=== PATIENT | female | born 2000 | race Caucasian/White ===

== ENCOUNTER 2021-11-01 13:52 | Emergency (ER) | payer OTHER ==
[2021-11-01] MEDS ORDERED: Benzocaine 20% Topical Spray UD MUCMEM ONE (14:30)
[2021-11-01] MEDS ORDERED: Lidocaine 2% Viscous Solution 15 ML Cup PO ONE (14:30)
--- NOTE | 2021-11-01 14:31 | EDM.PDOC ---
ED HPI GENERAL MEDICAL PROBLEM - General Chief Complaint: ENT Problem Stated Complaint: ABCESS TOOTH Time Seen by Provider: 11/01/21 14:10 Source of Information: Reports: Patient History Limitations: Reports: No Limitations - History of Present Illness INITIAL COMMENTS - FREE TEXT/NARRATIVE: HISTORY AND PHYSICAL: History of present illness: Patient is a 21-year-old female who presents emergency room today with concern of dental pain that has been ongoing for the past 1 week and is worsened over the past several days. Patient states that she is aware that she needs to get i nto the dentist in order to have her tooth extracted as she states that it broke quite a while ago. Patient states that she has not made the time in order to get this done but does understand the importance of seeing a dentist. Patient states that she has had pain of this tooth before and was given antibiotics which has helped the tooth in the past. Patient states that she is able to eat and drink and just avoids chewing on the affected tooth. Denies any other symptoms or concerns. Patient denies fever, chills, chest pain, shortness of breath, or cough. Denies headache, neck stiff ness, change in vision, syncope, or near syncope. Denies nausea, vomiting, abdominal pain, diarrhea, constipation, or dysuria. Has not noted any blood in urine or stool. Patient has been eating and drinking appropriately. Review of systems: As per history of present illness and below otherwise all systems reviewed and negative. Past medical history: As per history of present illness and as reviewed below otherwise noncontributory. Surgical history: As per history of present illness and as reviewed below otherwise noncontributory. Social history: See social history for further information Family history: As per history of present illness and as reviewed below otherwise noncontributory. Physical exam: General: Patient is alert, oriented, and in no acute distress. Patient sitting comfortably on exam table. Vitals stable and reviewed by me. HEENT: Patient is missing tooth #19 through 17. Tooth #21 is half chipped/eroded with surrounding edema of the gumline without obvious drainable abscess at this time. Otherwise, atraumatic, normocephalic, pupils equal and reactive bilaterally, negative for conjunctival pallor or scleral icterus, mucous membranes moist, throat clear, neck supple, nontender, trachea midline. No drooling or trismus noted. No meningeal signs. No hot potato voice noted. Lungs: Clear to auscultation, breath sounds equal bilaterally, chest nontender. Heart: S1S2, regular rate and rhythm without overt murmur Abdomen: Soft, nondistended, nontender. Negative for masses or hepatosplenomegaly. Negative for costovertebral tenderness. Pelvis: Stable nontender. Genitourinary: Deferred. Rectal: Deferred. Skin: Intact, warm, dry. No lesions or rashes noted. Extremities: Atraumatic, negative for cords or calf pain. Neurovascular unremarkable. Neuro: Awake, alert, oriented. Cranial nerves II through XII unremarkable. Cerebellum unremarkable. Motor and sensory unremarkable throughout. Exam nonfocal. Medical Decision Making: Signs and symptoms that were prompt return to the ED thoroughly discussed with patient. Discussed importance for follow-up with dentist. Voices understanding and is agreeable to plan of care. Denies any further questions or concerns at this time. Diagnostics: None Therapeutics: Dental balls Prescription: Augmentin, diclofenac, tramadol (#10 tabs) Impression: Dental infection Plan: 1. Please take medication as prescribed. Your medications have been sent to [facility]. 2. Tylenol as directed and as needed for pain management. Take diclofenac and tramadol as prescribed. When taking diclofenac, do not take any additional NSAID medication such as ibuprofen, naproxen, aspirin, etc. Caution when taking tramadol as this medication does cause drowsiness and sedation. Do not take this medication and drive a vehicle or operate any heavy machinery. Caution when taking this medication outside of the home. 3. "Tooth Balls" have been given to you; apply along the gumline every 2-3 hours as needed. Do not swallow these; external use only. 4. Follow-up with a dentist for definitive care. Return to the ED as needed and as discussed. Definitive disposition and diagnosis as appropriate pending reevaluation and review of above. left lower dental Pain Score (Numeric/FACES): 8 - Related Data Allergies Allergy/AdvReac Type Severity Reaction Status Date / Time No Known Allergies Allergy Verified 11/01/21 14:12 Home Meds: Home Meds Amoxicillin/Potassium Clav [Augmentin 875-125 Tablet] 1 each PO BID 7 Days #14 tablet 11/01/21 [Rx] Diclofenac Sodium [Voltaren] 75 mg PO BIDMEALS PRN #15 tab.cr 11/01/21 [Rx] Escitalopram [Lexapro] 20 mg PO DAILY 11/01/21 [History] Progesterone, Micronized [Progesterone] 10 mg PO DAILY 11/01/21 [History] metFORMIN [Glucophage XR] 500 mg PO BID 11/01/21 [History] traMADol [Ultram] 50 mg PO Q6H PRN #10 tab 11/01/21 [Rx] Past Medical History HEENT History: Reports: None Cardiovascular History: Reports: None Respiratory History: Reports: None Gastrointestinal History: Reports: None Genitourinary History: Reports: None 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 (See Below) Other EMERGENCY VETERINARIAN History: irregular menstrual cycle Musculoskeletal History: Reports: None Neurological History: Reports: None Psychiatric History: Reports: Anxiety, Depression Endocrine/Metabolic History: Reports: Other (See Below) Other Endocrine/Metabolic History: Pre-Diabetic Hematologic History: Reports: None Immunologic History: Reports: None Oncologic (Cancer) History: Reports: None Dermatologic History: Reports: None - Infectious Disease History Infectious Disease History: Reports: None - Past Surgical History Head Surgeries/Procedures: Reports: None HEENT Surgical History: Reports: Tonsillectomy Cardiovascular Surgical History: Reports: None Respiratory Surgical History: Reports: None GI Surgical History: Reports: None Female Surgical History: Reports: None Endocrine Surgical History: Reports: None Neurological Surgical History: Reports: None Musculoskeletal Surgical History: Reports: None Oncologic Surgical History: Reports: None Dermatological Surgical History: Reports: None Social & Family History - Family History Family Medical History: No Pertinent Family History - Caffeine Use Caffeine Use: Reports: None - Recreational Drug Use Recreational Drug Use: No ED ROS GENERAL - Review of Systems Review Of Systems: Comprehensive ROS is negative, except as noted in HPI. ED EXAM, GENERAL - Physical Exam Exam: See Below (See dictation) Course - Vital Signs Last Recorded V/S: Last Vital Signs Temp 98.5 F 11/01/21 14:10 Pulse 78 11/01/21 14:10 Resp 18 11/01/21 14:10 BP 152/86 H 11/01/21 14:10 Pulse Ox 97 11/01/21 14:10 - Orders/Labs/Meds Meds: Medications Discontinued Medications Generic Name Dose Route Start Last Admin Trade Name Freq PRN Reason Stop Dose Admin Benzocaine 2 each 11/01/21 14:30 Benzocaine 20% Topical Bryant Ud MUCMEM 11/01/21 14:31 ONETIME ONE Lidocaine HCl 15 ml 11/01/21 14:30 Lidocaine 2% Viscous Solution 15 Ml Cup PO 11/01/21 14:31 ONETIME ONE Departure - Departure Time of Disposition: 14:30 Disposition: Home, Self-Care 01 Clinical Impression: Dental infection - Discharge Information Prescriptions: Amoxicillin/Potassium Clav [Augmentin 875-125 Tablet] 1 each PO BID 7 Days #14 tablet traMADol [Ultram] 50 mg PO Q6H PRN #10 tab PRN Reason: Pain (Severe 7-10) Diclofenac Sodium [Voltaren] 75 mg PO BIDMEALS PRN #15 tab.cr PRN Reason: Pain Referrals: PCP,None [Primary Care Provider] - Forms: ED Department Discharge Additional Instructions: The following information is given to patients seen in the emergency department who are being discharged to home. This information is to outline your options for follow-up care. We provide all patients seen in our emergency department with a follow-up referral. The need for follow-up, as well as the timing and circumstances, are variable depending upon the specifics of your emergency department visit. If you don't have a primary care physician on staff, we will provide you with a referral. We always advise you to contact your personal physician following an emergency department visit to inform them of the circumstance of the visit and for follow-up with them and/or the need for any referrals to a consulting specialist. The emergency department will also refer you to a specialist when appropriate. This referral assures that you have the opportunity for follow-up care with a specialist. All of these measure are taken in an effort to provide you with optimal care, which includes your follow-up. Under all circumstances we always encourage you to contact your private physician who remains a resource for coordinating your care. When calling for follow-up care, please make the office aware that this follow-up is from your recent emergency room visit. If for any reason you are refused follow-up, please contact the [facility] Emergency Department at and asked to speak to the emergency department charge nurse. [facility] [address] [place] [address] [id number] [facility] [address] [place] [id number] 1. Please take medication as prescribed. Your medications have been sent to [facility]. 2. Tylenol as directed and as needed for pain management. Take diclofenac and tramadol as prescribed. When taking diclofenac, do not take any additional NSAID medication such as ibuprofen, naproxen, aspirin, etc. Caution when taking tramadol as this medication does cause drowsiness and sedation. Do not take this medication and drive a vehicle or operate any heavy machinery. Caution when taking this medication outside of the home. 3. "Tooth Balls" have been given to you; apply along the gumline every 2-3 hours as needed. Do not swallow these; external use only. 4. Follow-up with a dentist for definitive care. Return to the ED as needed and as discussed. Sepsis Event Note (ED) - Evaluation Sepsis Screening Result: No Definite Risk - Focused Exam Vital Signs: Vital Signs Temp Pulse Resp BP Pulse Ox 11/01/21 14:10 98.5 F 78 18 152/86 H 97
== END 2021-11-01 14:59 | disposition home or self-care (01) ==
LOC: MW.ED 13:52
DX: K04.7 Periapical abscess without sinus (principal)
CPT/HCPCS: 99282; A9270

== ENCOUNTER 2021-11-21 19:43 | Emergency (ER) | payer OTHER ==
--- NOTE | 2021-11-21 20:34 | EDM.PDOC ---
ED HPI GENERAL MEDICAL PROBLEM - General Chief Complaint: General Stated Complaint: TOOTHACHE Time Seen by Provider: 11/21/21 19:47 Source of Information: Reports: Patient History Limitations: Reports: No Limitations - History of Present Illness INITIAL COMMENTS - FREE TEXT/NARRATIVE: HISTORY AND PHYSICAL: History of present illness: Patient is a 21-year-old female who presents emergency room today with concern of dental infection. Patient states that she was seen recently emergency room and was given antibiotics. Patient states that she did have improvement of her dental pain for a short period of time but had pain come back. Patient states that she has not made an appointment with a dentist. Patient realizes that she needs to make an appointment with a dentist in order to get the tooth addressed. Patient states that she started having swelling next to the tooth today so came to the emergency room as she realized she needed more antibiotics. Patient denies fever, chills, chest pain, shortness of breath, or cough. Denies headache, neck stiff ness, change in vision, syncope, or near syncope. Denies nausea, vomiting, abdominal pain, diarrhea, constipation, or dysuria. Has not noted any blood in urine or stool. Patient has been eating and drinking appropriately. Review of systems: As per history of present illness and below otherwise all systems reviewed and negative. Past medical history: As per history of present illness and as reviewed below otherwise noncontributory. Surgical history: As per history of present illness and as reviewed below otherwise noncontributory. Social history: See social history for further information Family history: As per history of present illness and as reviewed below otherwise noncontributory. Physical exam: General: Patient is alert, oriented, and in no acute distress. Patient sitting comfortably on exam table. Vitals stable and reviewed by me HEENT: Patient is missing tooth #19 through 17. Tooth #21 is half fractured and exposed nerve root with mild edema of the adjacent mandible and pain to palpation without obvious drainable abscess. Otherwise, atraumatic, normocephalic, pupils equal and reactive bilaterally, negative for conjunctival pallor or scleral icterus, mucous membranes moist, throat clear, neck supple, nontender, trachea midline. No drooling or trismus noted. No meningeal signs. No hot potato voice noted. Lungs: Clear to auscultation, breath sounds equal bilaterally, chest nontender. Heart: S1S2, regular rate and rhythm without overt murmur Abdomen: Soft, nondistended, nontender. Negative for masses or hepatosplenomegaly. Negative for costovertebral tenderness. Pelvis: Stable nontender. Genitourinary: Deferred. Rectal: Deferred. Skin: Intact, warm, dry. No lesions or rashes noted. Extremities: Atraumatic, negative for cords or calf pain. Neurovascular unremarkable. Neuro: Awake, alert, oriented. Cranial nerves II through XII unremarkable. Cerebellum unremarkable. Motor and sensory unremarkable throughout. Exam nonfocal. Medical Decision Making: Personally seen and evaluated patient on 11/01/2021 and at that time patient had a dental infection and was placed on Augmentin and instructed to follow-up with a dentist. According to patient, she has not done this. She did have some improvement of her tooth pain, has had returning tooth discomfort over the past several days. Patient has recently been on amoxicillin/Augmentin with worsening swelling adjacent to her tooth. Will switch to clindamycin. I also discussed with patient getting temporary cement [id number] until she is able to follow-up with a dentist. Discussed importance with patient that she needs a follow-up with a dentist to get the tooth addressed as it is fractured with an explore s ooner for root. Will give patient a small amount of [place] to get through the weekend. Signs and symptoms that were prompt return to the ED thoroughly discussed with patient. Discussed importance for follow-up with a dentist. Voices understanding and is agreeable to plan of care. Denies any further questions or concerns at this time. Diagnostics: None Therapeutics: None Prescription: [place] (#10 tabs), clindamycin Impression: Dental infection Tooth fracture Plan: 1. Please take medication as prescribed. 2. Tylenol and/or ibuprofen as directed and as needed for pain management. Caution when taking [place] as this medication does cause drowsiness and sedation. Do not take this medication and operate any heavy equipment or drive a vehicle. Caution when using this medication outside at home. [place] also contains a Tylenol component so take this into consideration with any additional Tylenol dosing as discussed. 3. "Tooth Balls" have been given to you; apply along the gumline every 2-3 hours as needed. Do not swallow these; external use only. 4. Follow-up with a dentist for definitive care. Return to the ED as needed and as discussed. Definitive disposition and diagnosis as appropriate pending reevaluation and review of above. Left Face/Facial Pain Score (Numeric/FACES): 10 - Related Data Allergies Allergy/AdvReac Type Severity Reaction Status Date / Time No Known Allergies Allergy Verified 11/01/21 14:12 Home Meds: Home Meds Amoxicillin/Potassium Clav [Augmentin 875-125 Tablet] 1 each PO BID 7 Days #14 tablet 11/01/21 [Rx] Diclofenac Sodium [Voltaren] 75 mg PO BIDMEALS PRN #15 tab.cr 11/01/21 [Rx] Escitalopram [Lexapro] 20 mg PO DAILY 11/01/21 [History] Progesterone, Micronized [Progesterone] 10 mg PO DAILY 11/01/21 [History] metFORMIN [Glucophage XR] 500 mg PO BID 11/01/21 [History] traMADol [Ultram] 50 mg PO Q6H PRN #10 tab 11/01/21 [Rx] Past Medical History HEENT History: Reports: None Cardiovascular History: Reports: None Respiratory History: Reports: None Gastrointestinal History: Reports: None Genitourinary History: Reports: None 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 History: Reports: 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 (See Below) Other 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 History: irregular menstrual cycle Musculoskeletal History: Reports: None Neurological History: Reports: None Psychiatric History: Reports: Anxiety, Depression Endocrine/Metabolic History: Reports: Other (See Below) Other Endocrine/Metabolic History: Pre-Diabetic Hematologic History: Reports: None Immunologic History: Reports: None Oncologic (Cancer) History: Reports: None Dermatologic History: Reports: None - Infectious Disease History Infectious Disease History: Reports: None - Past Surgical History Head Surgeries/Procedures: Reports: None HEENT Surgical History: Reports: Tonsillectomy Cardiovascular Surgical History: Reports: None Respiratory Surgical History: Reports: None GI Surgical History: Reports: None Female Surgical History: Reports: None Endocrine Surgical History: Reports: None Neurological Surgical History: Reports: None Musculoskeletal Surgical History: Reports: None Oncologic Surgical History: Reports: None Dermatological Surgical History: Reports: None Social & Family History - Family History Family Medical History: No Pertinent Family History - Tobacco Use Tobacco Use Status *Q: Never Tobacco User - Caffeine Use Caffeine Use: Reports: None - Recreational Drug Use Recreational Drug Use: No ED ROS GENERAL - Review of Systems Review Of Systems: Comprehensive ROS is negative, except as noted in HPI. ED EXAM, GENERAL - Physical Exam Exam: See Below (See dictation) Course - Vital Signs Last Recorded V/S: Last Vital Signs Temp 98 F 11/21/21 20:08 Pulse 88 11/21/21 20:08 Resp 20 11/21/21 20:08 BP Pulse Ox 98 11/21/21 20:08 Departure - Departure Time of Disposition: 20:33 Disposition: Home, Self-Care 01 Clinical Impression: Tooth fracture, Dental infection - Discharge Information Forms: ED Department Discharge Additional Instructions: The following information is given to patients seen in the emergency department who are being discharged to home. This information is to outline your options for follow-up care. We provide all patients seen in our emergency department with a follow-up referral. The need for follow-up, as well as the timing and circumstances, are variable depending upon the specifics of your emergency department visit. If you don't have a primary care physician on staff, we will provide you with a referral. We always advise you to contact your personal physician following an emergency department visit to inform them of the circumstance of the visit and for follow-up with them and/or the need for any referrals to a consulting specialist. The emergency department will also refer you to a specialist when appropriate. This referral assures that you have the opportunity for follow-up care with a specialist. All of these measure are taken in an effort to provide you with optimal care, which includes your follow-up. Under all circumstances we always encourage you to contact your private physician who remains a resource for coordinating your care. When calling for follow-up care, please make the office aware that this follow-up is from your recent emergency room visit. If for any reason you are refused follow-up, please contact the [facility] Emergency Department at and asked to speak to the emergency department charge nurse. [facility] [address] [place] [id number] [facility] [address] [place] [id number] 1. Please take medication as prescribed. 2. Tylenol and/or ibuprofen as directed and as needed for pain management. Caution when taking [place] as this medication does cause drowsiness and sedation. Do not take this medication and operate any heavy equipment or drive a vehicle. Caution when using this medication outside at home. [place] also contains a Tylenol component so take this into consideration with any additional Tylenol dosing as discussed. 3. "Tooth Balls" have been given to you; apply along the gumline every 2-3 hours as needed. Do not swallow these; external use only. 4. Follow-up with a dentist for definitive care. Return to the ED as needed and as discussed. Sepsis Event Note (ED) - Focused Exam Vital Signs: Vital Signs Temp Pulse Resp Pulse Ox 11/21/21 20:08 98 F 88 20 98
== END 2021-11-21 20:45 | disposition home or self-care (01) ==
LOC: MW.ED 19:43
DX: S02.5XXA Fracture of tooth (traumatic), initial encounter for closed fracture (principal); K04.7 Periapical abscess without sinus
CPT/HCPCS: 99282

== ENCOUNTER 2021-11-23 13:20 | Emergency (ER) | payer OTHER ==
[2021-11-23] MEDS ORDERED: Sodium Chloride 0.9% 10 ML Syringe FLUSH PRN (16:23)
[2021-11-23] MEDS ORDERED: Sodium Chloride 0.9% 2.5 ML Syringe FLUSH PRN (16:23)
[2021-11-23] MEDS ORDERED: Sodium Chloride 0.9% 1,000 ML IV ONE (16:50)
[2021-11-23] MEDS ORDERED: HYDROmorphone 1 MG/ML Syringe IVPUSH ONE ×2 (16:50→18:48)
[2021-11-23] MEDS ORDERED: Ampicillin/Sulbactam Na 3 GM in Sodium Chloride 0.9% 100 ML IV ONE (16:51)
[2021-11-23 17:38] LABS: BLOOD UREA NITROGEN,BUN 13 mg/dL (7.0-18.0); CARBON DIOXIDE,CO2 25.6 mmol/L (21.0-32.0); CHLORIDE,CL 104 mmol/L (98-107); GLUCOSE RANDOM 87 mg/dL (74-106); POTASSIUM,K 4.6 mmol/L (3.5-5.1); SODIUM,NA 142 mmol/L (136-145)
[2021-11-23 17:54] LABS: CORONAVIRUS COVID-19 NAA POSITIVE (NEGATIVE); INFLUENZA A NAA NEGATIVE (NEGATIVE); INFLUENZA B NAA NEGATIVE (NEGATIVE)
[2021-11-23] MEDS ORDERED: Iopamidol 755 MG/ML 500 ML Multipack Bottle IVPUSH ONE (19:04)
--- NOTE | 2021-11-23 19:44 | CT ---
Clinical INDICATION: Dental infection. Worsening edema. TECHNIQUE: Axial intravenously infused CT cuts performed through the facial bones. 100 mL of Isovue-370 has been injected intravenously. FINDINGS: There is no convincing dental abscess. There is moderate right and mild left maxillary sinus mucosal thickening. There is moderate bilateral ethmoid sinus mucosal thickening with mild mucosal thickening in both frontal sinuses. The nasopharynx is clear. There is a large dental sharon of the left maxillary premolar tooth. The visualized brain and orbits appear normal. There is extensive submental, mandibular, carotid chain and posterior cervical space lymph adenopathy presumably reactive in nature. The major salivary glands and the thyroid gland all appear normal. IMPRESSION: 1. No dental abscess identified. 2. Paranasal sinus mucosal thickening most prominent in the right maxillary sinus. 3. Carious left maxillary premolar tooth. 4. Cervical lymphadenopathy presumed reactive in nature. Please note that all CT scans at this facility use dose modulation, iterative reconstruction, and/or weight-based dosing when appropriate to reduce radiation dose to as low as reasonably achievable. Dictated by Emeterio Hgih MD @ 11/23/2021 7:43:43 PM (Electronically Signed)
--- NOTE | 2021-11-23 19:50 | CT ---
Clinical INDICATION: Recent dental infection. Worsening edema. TECHNIQUE: Axial intravenously infused CT cuts were performed from above the skullbase to the superior mediastinum. One hundred mL of Isovue-370 has been injected intravenously. FINDINGS: No dental abscess is identified. There is a carious left mandibular premolar tooth. There is mucosal thickening within the paranasal sinuses most prominent within the right maxillary sinus. The brain and orbits appear normal. No mucosal abnormality is identified within the on nasal cavity or pharynx. The major salivary glands and the thyroid gland appear normal. There are patchy ground-glass opacities and consolidations at the lung apices likely representing COVID-19. Impression: 1. No dental abscess identified. 2. Carious left mandibular premolar tooth. 3. Paranasal sinus mucosal thickening most prominent within the right maxillary sinus. 4. Patchy ground-glass opacities and consolidations at the lung apices likely representing COVID-19. Please note that all CT scans at this facility use dose modulation, iterative reconstruction, and/or weight-based dosing when appropriate to reduce radiation dose to as low as reasonably achievable. Dictated by Emeterio High MD @ 11/23/2021 7:49:56 PM (Electronically Signed)
--- NOTE | 2021-11-23 20:08 | EDM.PDOC ---
ED HPI GENERAL MEDICAL PROBLEM - General Chief Complaint: ENT Problem Stated Complaint: SOB SWELLING FROM BAD TOOTH Time Seen by Provider: 11/23/21 16:17 Source of Information: Reports: Patient History Limitations: Reports: No Limitations - History of Present Illness INITIAL COMMENTS - FREE TEXT/NARRATIVE: HISTORY AND PHYSICAL: History of present illness: Patient is a 21-year-old female, who I am personally familiar with as I have seen her multiple times in the past 1 month, who presents emergency room today with concern of worsening dental infection. Patient states that she has been taking her antibiotics but despite this has had worsening pain of the left side and now feels like the pain is going underneath her tongue. Patient states that she has been taking the clindamycin that I gave her 2 days ago and only has 3 tabs of her pain medication left. Patient states that she did not go to the store and get the temporary cement that I recommended to her but has been taking the antibiotics. Patient states that she feels like the swelling is worse under her tongue and the side of her neck. Patient denies fever, chills, chest pain, shortness of breath, or cough. Denies headache, neck stiff ness, change in vision, syncope, or near syncope. Denies nausea, vomiting, abdominal pain, diarrhea, constipation, or dysuria. Has not noted any blood in urine or stool. Patient has been eating and drinking appropriately. Review of systems: As per history of present illness and below otherwise all systems reviewed and negative. Past medical history: As per history of present illness and as reviewed below otherwise noncontributory. Surgical history: As per history of present illness and as reviewed below otherwise noncontributory. Social history: See social history for further information Family history: As per history of present illness and as reviewed below otherwise noncontributory. Physical exam: General: Patient is alert, oriented, and in no acute distress. Patient sitting on exam table is tearful and crying in pain holding her left side mouth and throat. HEENT: No obvious drainable dental abscess. No appreciable edema of the neck or mouth; however, patient does have severe pain to palpation under the tongue with no obvious cellulitis / edema. The pain under her tongue is new from prior exam. Tooth #26 remains fractured with exposed nerve root. Otherwise, atraumatic, normocephalic, pupils equal and reactive bilaterally, negative for conjunctival pallor or scleral icterus, mucous membranes moist, throat clear, neck supple, nontender, trachea midline. No drooling or trismus noted. No meningeal signs. No hot potato voice noted. Lungs: Clear to auscultation, breath sounds equal bilaterally, chest nontender. Heart: S1S2, regular rate and rhythm without overt murmur Abdomen: Soft, nondistended, nontender. Negative for masses or hepatosplenomegaly. Negative for costovertebral tenderness. Pelvis: Stable nontender. Genitourinary: Deferred. Rectal: Deferred. Skin: Intact, warm, dry. No lesions or rashes noted. Extremities: Atraumatic, negative for cords or calf pain. Neurovascular unremarkable. Neuro: Awake, alert, oriented. Cranial nerves II through XII unremarkable. Cerebellum unremarkable. Motor and sensory unremarkable throughout. Exam nonfocal. Medical Decision Making: Patient is a 21 year old female who presents to the ED today with worsening dental pain / swelling to side of her throat and new pain under her tongue. Upon arrival to the ED, patient is vitally stable and sitting on exam table. She is tearful and crying throughout exam holding the left side of her mouth and throat. I have personally seen and evaluated patient multiple times in the past 1 month. Patient does have an obvious tooth fracture on the bottom left, approximately tooth #26 without obvious dental abscess. Patient continues to have this fracture, with no obvious sign of edema of her throat or adjacent to the tooth today. However, she does have new pain to palpation under the tongue that she did not have prior. Given this, will obtain lab work with imaging of maxillofacial all the way down throat for possible deep-seated abscess versus Prinzmetal angina. Will give patient dose of IV antibiotics empirically at this time while awaiting diagnostic completion. I had originally seen patient on 11/01/21 for dental pain and at that time I placed her on Augmentin and gave her pain medications and instructed her to follow-up with a dentist. She has not yet followed up with the dentist as she states that she got "sick "so did not make an appointment. She began experiencing symptoms again and I had seen her on the , 2 days ago. At that time, I had switched antibiotics to clindamycin and give her more pain medication. Pain that patient has now returned, obtaining further lab work and imaging at this time recommended for concern of worsening infection now with new clinical pain under the tongue. CBC is unremarkable and specifically white blood cell count is normal. CMP does show mild transaminitis with AST of 50 and ALT of 90. Lactic acid is within normal limits. Blood cultures pending. hCG negative. Patient is positive for Covid and negative for influenza and strep. Maxillofacial and sinus with contrast CT shows no dental abscess. Paranasal sinus mucosal thickening most prominent in the right maxillary sinus. Carious left maxillary premolar tooth. Cervical lymphadenopathy presumed reactive in nature. Soft tissue neck CT with contrast shows no dental abscess identified. Carious left mandibular premolar tooth. Paranasal sinus mucosal thickening most prominent within the right maxillary sinus. Patchy groundglass opacities and consolidations at the lung apices likely resolving COVID-19. Upon reevaluation of patient, she does have improvement of her symptoms with therapeutics given today in the emergency room. I discussed the importance of calling the dentist tomorrow morning in order to get her decayed tooth addressed. I also discussed going to the local grocery store to get the temporary cement to cover the tooth temporarily as this will help with her pain. Strict return precautions thoroughly discussed with patient. Discussed importance for follow-up with a primary care provider and her dentist. Voices understanding and is agreeable to plan of care. Denies any further q uestions or concerns at this time. Diagnostics: CBC, CMP, Serum hcg, Strep, COVID/Flu, Soft tissue neck ct w cont, maxilofacial CT w cont Therapeutics: NS, Dilaudid, Ampicillin/Sulbactam Prescription: None Impression: Tooth fracture COVID-19 viral infection Plan: 1. Your COVID-19 screening is positive. That means you do have the coronavirus and are considered contagious. Your vital signs and oxygen saturation are well enough that you were able to monitor your symptoms at home. Continue to monitor for trouble breathing, new confusion or inability to arouse, bluish lips or face or any of the other symptoms we discussed -if this occurs please return to the emergency room.Continue to monitor your health at home for worsening symptoms so that you can be taken care of and treated quickly if needed. 2. Please self quarantine until 10 days have passed since your symptoms began AND you are fever free (<100.4 degrees fahrenheit) for 24 hours without the use of fever-reducing medications AND symptoms are improving. You should restrict activities outside of your home, except for getting medical care. Do not go to work, school, or public areas. Avoid using public transportation, ride-sharing, or taxis. Inform any persons that you have been in contact with since you started becoming symptomatic that you have tested positive; they should be made aware and take the appropriate steps as needed. 3. You may alternate Tylenol and ibuprofen as needed for pain and fever management. 4. The [facility] department will be calling you and following up with you. The [place] COVID 19 Hotline phone number , They are open Wednesday - Wednesday 7am - 7pm. Follow up with your primary care provider for re-evaluation and re-testing after quarantine and discuss when you should be seen. 6. For more specific guidelines regarding isolation/quarantine please visit this website. https://www.health.[place].gov/sites/www/files/documents/Files/CHRISTOPH/coronavirus/Factsh eet_for_People_With_COVID-19.pdf Definitive disposition and diagnosis as appropriate pending reevaluation and review of above. Throat Pain Score (Numeric/FACES): 9 - Related Data Allergies Allergy/AdvReac Type Severity Reaction Status Date / Time almond Allergy Itching Verified 11/23/21 14:51 morphine Allergy Pain Verified 11/23/21 14:51 Home Meds: Home Meds Amoxicillin/Potassium Clav [Augmentin 875-125 Tablet] 1 each PO BID 7 Days #14 tablet 11/01/21 [Rx] Diclofenac Sodium [Voltaren] 75 mg PO BIDMEALS PRN #15 tab.cr 11/01/21 [Rx] Escitalopram [Lexapro] 20 mg PO DAILY 11/01/21 [History] Progesterone, Micronized [Progesterone] 10 mg PO DAILY 11/01/21 [History] metFORMIN [Glucophage XR] 500 mg PO BID 11/01/21 [History] traMADol [Ultram] 50 mg PO Q6H PRN #10 tab 11/01/21 [Rx] Acetaminophen/oxyCODONE [Percocet 325-5 MG] 1 each PO Q4H PRN #18 tab 11/23/21 [Rx] Past Medical History HEENT History: Reports: None Cardiovascular History: Reports: None Respiratory History: Reports: None Gastrointestinal History: Reports: None Genitourinary History: Reports: None 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: irregular menstrual cycle Musculoskeletal History: Reports: None Neurological History: Reports: None Psychiatric History: Reports: Anxiety, Depression Endocrine/Metabolic History: Reports: Other (See Below) Other Endocrine/Metabolic History: Pre-Diabetic Hematologic History: Reports: None Immunologic History: Reports: None Oncologic (Cancer) History: Reports: None Dermatologic History: Reports: None - Infectious Disease History Infectious Disease History: Reports: None - Past Surgical History Head Surgeries/Procedures: Reports: None HEENT Surgical History: Reports: Tonsillectomy Cardiovascular Surgical History: Reports: None Respiratory Surgical History: Reports: None GI Surgical History: Reports: None Female Surgical History: Reports: None Endocrine Surgical History: Reports: None Neurological Surgical History: Reports: None Musculoskeletal Surgical History: Reports: None Oncologic Surgical History: Reports: None Dermatological Surgical History: Reports: None Social & Family History - Family History Family Medical History: No Pertinent Family History - Caffeine Use Caffeine Use: Reports: None ED ROS GENERAL - Review of Systems Review Of Systems: Comprehensive ROS is negative, except as noted in HPI. ED EXAM, GENERAL - Physical Exam Exam: See Below (see dictation) Course - Vital Signs Last Recorded V/S: Last Vital Signs Temp 96.5 F L 11/23/21 14:52 Pulse 95 11/23/21 14:52 Resp 16 11/23/21 14:52 BP 138/98 H 11/23/21 14:52 Pulse Ox 95 11/23/21 14:52 - Orders/Labs/Meds Orders: Active Orders 24 hr Category Date Time Status CULTURE BLOOD [BC] Stat Lab 11/23/21 16:57 Received CULTURE BLOOD [BC] Stat Lab 11/23/21 17:03 Received Blood Culture x2 Reflex Set [OM.PC] Stat Oth 11/23/21 16:50 Ordered Saline Lock Insert [OM.PC] Stat Oth 11/23/21 16:23 Ordered Labs: Laboratory Tests 11/23/21 11/23/21 11/23/21 Range/Units 16:57 16:57 16:57 WBC 4.23 (4.0-11.0) K/uL RBC 4.77 (4.30-5.90) M/uL Hgb 13.8 (12.0-16.0) g/dL Hct 41.3 (36.0-46.0) % MCV 86.6 (80.0-98.0) fL MCH 28.9 (27.0-32.0) pg MCHC 33.4 (31.0-37.0) g/dL RDW Std Deviation 42.7 (28.0-62.0) fl RDW Coeff of Meera 13 (11.0-15.0) % Plt Count 200 (150-400) K/uL MPV 11.00 (7.40-12.00) fL Neut % (Auto) 61.5 (48.0-80.0) % Lymph % (Auto) 26.5 (16.0-40.0) % [place] % (Auto) 11.6 (0.0-15.0) % Eos % (Auto) 0.2 (0.0-7.0) % Baso % (Auto) 0.2 (0.0-1.5) % Neut # (Auto) 2.6 (1.4-5.7) K/uL Lymph # (Auto) 1.1 (0.6-2.4) K/uL [place] # (Auto) 0.5 (0.0-0.8) K/uL Eos # (Auto) 0.0 (0.0-0.7) K/uL Baso # (Auto) 0.0 (0.0-0.1) K/uL Nucleated RBC % 0.0 /100WBC Nucleated RBCs # 0 K/uL Sodium 142 (136-145) mmol/L Potassium 4.6 (3.5-5.1) mmol/L Chloride 104 (98-107) mmol/L Carbon Dioxide 25.6 (21.0-32.0) mmol/L BUN 13 (7.0-18.0) mg/dL Creatinine 0.9 (0.6-1.0) mg/dL Est Cr Clr Drug Dosing 106.03 mL/min Estimated GFR (MDRD) > 60.0 ml/min Glucose 87 (74-106) mg/dL Lactic Acid (0.4-2.0) mmol/L Calcium 9.5 (8.5-10.1) mg/dL Total Bilirubin 0.6 (0.2-1.0) mg/dL AST 50 H (15-37) IU/L ALT 90 H (14-63) IU/L Alkaline Phosphatase 75 (46-116) U/L Total Protein 7.7 (6.4-8.2) g/dL Albumin 3.9 (3.4-5.0) g/dL Globulin 3.8 (2.6-4.0) g/dL Albumin/Globulin Ratio 1.0 (0.9-1.6) HCG, Qual NEGATIVE (NEG) Influenza Type A RNA (NEGATIVE) Influenza Type B RNA (NEGATIVE) SARS-CoV-2 RNA (BRUCE) (NEGATIVE) Group A Strep (PCR) (NOT DETECT) 11/23/21 11/23/21 11/23/21 Range/Units 16:59 16:59 17:03 WBC (4.0-11.0) K/uL RBC (4.30-5.90) M/uL Hgb (12.0-16.0) g/dL Hct (36.0-46.0) % MCV (80.0-98.0) fL MCH (27.0-32.0) pg MCHC (31.0-37.0) g/dL RDW Std Deviation (28.0-62.0) fl RDW Coeff of Meera (11.0-15.0) % Plt Count (150-400) K/uL MPV (7.40-12.00) fL Neut % (Auto) (48.0-80.0) % Lymph % (Auto) (16.0-40.0) % [place] % (Auto) (0.0-15.0) % Eos % (Auto) (0.0-7.0) % Baso % (Auto) (0.0-1.5) % Neut # (Auto) (1.4-5.7) K/uL Lymph # (Auto) (0.6-2.4) K/uL [place] # (Auto) (0.0-0.8) K/uL Eos # (Auto) (0.0-0.7) K/uL Baso # (Auto) (0.0-0.1) K/uL Nucleated RBC % /100WBC Nucleated RBCs # K/uL Sodium (136-145) mmol/L Potassium (3.5-5.1) mmol/L Chloride (98-107) mmol/L Carbon Dioxide (21.0-32.0) mmol/L BUN (7.0-18.0) mg/dL Creatinine (0.6-1.0) mg/dL Est Cr Clr Drug Dosing mL/min Estimated GFR (MDRD) ml/min Glucose (74-106) mg/dL Lactic Acid 1.0 (0.4-2.0) mmol/L Calcium (8.5-10.1) mg/dL Total Bilirubin (0.2-1.0) mg/dL AST (15-37) IU/L ALT (14-63) IU/L Alkaline Phosphatase (46-116) U/L Total Protein (6.4-8.2) g/dL Albumin (3.4-5.0) g/dL Globulin (2.6-4.0) g/dL Albumin/Globulin Ratio (0.9-1.6) HCG, Qual (NEG) Influenza Type A RNA NEGATIVE (NEGATIVE) Influenza Type B RNA NEGATIVE (NEGATIVE) SARS-CoV-2 RNA (BRUCE) POSITIVE H (NEGATIVE) Group A Strep (PCR) NOT DETECTED (NOT DETECT) Meds: Medications Discontinued Medications Generic Name Dose Route Start Last Admin Trade Name Freq PRN Reason Stop Dose Admin Hydromorphone HCl 1 mg 11/23/21 16:50 11/23/21 17:19 Hydromorphone 1 Mg/Ml Syringe IVPUSH 11/23/21 16:51 1 mg ONETIME ONE Administration Hydromorphone HCl 1 mg 11/23/21 18:48 11/23/21 19:07 Hydromorphone 1 Mg/Ml Syringe IVPUSH 11/23/21 18:49 1 mg ONETIME ONE Administration Sodium Chloride 1,000 mls @ 999 mls/hr 11/23/21 16:50 11/23/21 17:19 Normal Saline IV 11/23/21 17:50 999 mls/hr STAT ONE Administration Ampicillin Sodium/Sulbactam 100 mls @ 200 mls/hr 11/23/21 16:51 11/23/21 17:20 Sodium 3 gm/ Sodium Chloride IV 11/23/21 17:20 200 mls/hr ONETIME ONE Administration Iopamidol 100 ml 11/23/21 19:04 11/23/21 19:05 Iopamidol 755 Mg/Ml 500 Ml Multipack Bottle IVPUSH 11/23/21 19:05 100 ml ONETIME ONE Administration Sodium Chloride 10 ml 11/23/21 16:23 11/23/21 19:39 Sodium Chloride 0.9% 10 Ml Syringe FLUSH 10 ml ASDIRECTED PRN Administration Keep Vein Open Sodium Chloride 2.5 ml 11/23/21 16:23 11/23/21 19:39 Sodium Chloride 0.9% 2.5 Ml Syringe FLUSH 2.5 ml ASDIRECTED PRN Administration Keep Vein Open Departure - Departure Time of Disposition: 20:08 Disposition: Home, Self-Care 01 Clinical Impression: Tooth fracture, COVID-19 virus infection - Discharge Information Prescriptions: Acetaminophen/oxyCODONE [Percocet 325-5 MG] 1 each PO Q4H PRN #18 tab PRN Reason: Pain Referrals: PCP,None [Primary Care Provider] - Forms: ED Department Discharge Additional Instructions: The following information is given to patients seen in the emergency department who are being discharged to home. This information is to outline your options for follow-up care. We provide all patients seen in our emergency department with a follow-up referral. The need for follow-up, as well as the timing and circumstances, are variable depending upon the specifics of your emergency department visit. If you don't have a primary care physician on staff, we will provide you with a referral. We always advise you to contact your personal physician following an emergency department visit to inform them of the circumstance of the visit and for follow-up with them and/or the need for any referrals to a consulting specialist. The emergency department will also refer you to a specialist when appropriate. This referral assures that you have the opportunity for follow-up care with a specialist. All of these measure are taken in an effort to provide you with optimal care, which includes your follow-up. Under all circumstances we always encourage you to contact your private physician who remains a resource for coordinating your care. When calling for follow-up care, please make the office aware that this follow-up is from your recent emergency room visit. If for any reason you are refused follow-up, please contact the [facility] Emergency Department at and asked to speak to the emergency department charge nurse. [facility] [address] [place] [address] [facility] [address] [place] [address] 1. Your COVID-19 screening is positive. That means you do have the coronavirus and are considered contagious. Your vital signs and oxygen saturation are well enough that you were able to monitor your symptoms at home. Continue to monitor for trouble breathing, new confusion or inability to arouse, bluish lips or face or any of the other symptoms we discussed -if this occurs please return to the emergency room.Continue to monitor your health at home for worsening symptoms so that you can be taken care of and treated quickly if needed. 2. Please self quarantine until 10 days have passed since your symptoms began AND you are fever free (<100.4 degrees fahrenheit) for 24 hours without the use of fever-reducing medications AND symptoms are improving. You should restrict activities outside of your home, except for getting medical care. Do not go to w ork, school, or public areas. Avoid using public transportation, ride-sharing, or taxis. Inform any persons that you have been in contact with since you started becoming symptomatic that you have tested positive; they should be made aware and take the appropriate steps as needed. 3. You may alternate Tylenol and ibuprofen as needed for pain and fever management. 4. The [facility] health department will be calling you and following up with you. The [place] COVID 19 Hotline phone number , They are open Wednesday - Wednesday 7am - 7pm. Follow up with your primary care provider for re-evaluation an d re-testing after quarantine and discuss when you should be seen. 6. For more specific guidelines regarding isolation/quarantine please visit this website. https://www.health.sc.gov/sites/www/files/ documents/Files/CHRISTOPH/coronavirus/Factsheet_for_People_With_COVID-19.pdf Sepsis Event Note (ED) - Evaluation Sepsis Screening Result: No Definite Risk - Focused Exam Vital Signs: Vital Signs Temp Pulse Resp BP Pulse Ox 11/23/21 14:52 96.5 F L 95 16 138/98 H 95 - My Orders Last 24 Hours: My Active Orders 11/23/21 16:23 Saline Lock Insert [OM.PC] Stat 11/23/21 16:50 Blood Culture x2 Reflex Set [OM.PC] Stat 11/23/21 16:57 CULTURE BLOOD [BC] Stat 11/23/21 17:03 CULTURE BLOOD [BC] Stat - Assessment/Plan Last 24 Hours: My Active Orders 11/23/21 16:23 Saline Lock Insert [OM.PC] Stat 11/23/21 16:50 Blood Culture x2 Reflex Set [OM.PC] Stat 11/23/21 16:57 CULTURE BLOOD [BC] Stat 11/23/21 17:03 CULTURE BLOOD [BC] Stat
== END 2021-11-23 20:16 | disposition home or self-care (01) ==
LOC: MW.ED 13:20
DX: U07.1 COVID-19 (principal); K03.81 Cracked tooth; Z88.5 Allergy status to narcotic agent; Z91.018 Allergy to other foods
CPT/HCPCS: 0240U; 36415; 70487; 70491; 80053; 83605; 84703; 85025; 87040; 87651; 96365; 96375; 96376; 99283; J0295; J1170; J7030; Q9967